=== PATIENT | female | born 1970 | race Two or more races ===

== ENCOUNTER 2018-11-09 10:46 | Inpatient (IN) | payer OTHER ==
[~2018-11-09] VITALS: Ht 149.9 cm; Wt 113.4 kg
[2018-11-26] MEDS ORDERED: SINGULAIR10 MG PO (10:50)
[2018-11-26] MEDS ORDERED: LEVO-T50 MCG PO (10:50)
[2018-11-26] MEDS ORDERED: ZANTAC300 MG PO (10:51)
[2018-11-26] MEDS ORDERED: FLECAINIDE ACET50 MG PO (10:51)
[2018-11-26] MEDS ORDERED: [UNRECOGNIZED DRUG - OTHER] (10:51)
[2018-11-26] MEDS ORDERED: ALBUTEROL IN (10:52)
[2018-11-26] MEDS ORDERED: ALBUTEROL1.25 MG/3 IH (10:53)
[2018-11-26] MEDS ORDERED: XOP IN (10:54)
[2018-12-01] MEDS ORDERED: CLARITIN10 MG PO (07:59)
[2018-12-01] MEDS ORDERED: ALBUTEROL0.63 MG/3 (08:00)
[2018-12-01] MEDS ORDERED: XOPENEX0.63 MG/3 (08:03)
== END 2018-12-04 17:38 | disposition home or self-care (01) | DRG 330 ==
LOC: SURG 11-26 10:15 → O/R 12-01 05:24 → SURG 12-01 05:24
PROVIDERS: ADMIT Colon & Rectal Surgery
PROC: 0DJD8ZZ Inspection of Lower Intestinal Tract, Via Natural or Artificial Opening Endoscopic (ICD-10-PCS; 2018-12-01)
PROC: 3E0F7GC Introduction of Other Therapeutic Substance into Respiratory Tract, Via Natural or Artificial Opening (ICD-10-PCS; 2018-12-01)
PROC: 4A12X4Z Monitoring of Cardiac Electrical Activity, External Approach (ICD-10-PCS; 2018-12-01)
PROC: 0DTN4ZZ Resection of Sigmoid Colon, Percutaneous Endoscopic Approach (ICD-10-PCS; principal; 2018-12-01 18:30)
DX: K57.20 Diverticulitis of large intestine with perforation and abscess without bleeding (principal); K92.1 Melena; J45.22 Mild intermittent asthma with status asthmaticus; I47.1 Supraventricular tachycardia; E03.8 Other specified hypothyroidism; G47.33 Obstructive sleep apnea (adult) (pediatric); E66.01 Morbid (severe) obesity due to excess calories; K29.70 Gastritis, unspecified, without bleeding

== ENCOUNTER 2018-12-20 22:57 | Emergency (ER) | payer OTHER ==
[~2018-12-20] VITALS: Ht 149.9 cm; Wt 108.9 kg
[~2018-12-20 22:57] MED LIST: ALBUTEROL IN; ALBUTEROL0.63 MG/3; ALBUTEROL1.25 MG/3 IH; CLARITIN10 MG PO; FLECAINIDE ACET50 MG PO; LEVO-T50 MCG PO; SINGULAIR10 MG PO; XOP IN; XOPENEX0.63 MG/3; ZANTAC300 MG PO; [UNRECOGNIZED DRUG - OTHER]
== END 2018-12-21 16:04 | disposition home or self-care (01) ==
LOC: ER 22:57
DX: T81.31XA Disruption of external operation (surgical) wound, not elsewhere classified, initial encounter (principal)

== ENCOUNTER 2019-12-24 10:44 | Day surgery (SDC) | payer OTHER | END 2019-12-24 17:15 | disposition home or self-care (01) | LOC: AMB-ENDOS 10:44 | PROVIDERS: ATTEND Colon & Rectal Surgery | DX: K57.32 Diverticulitis of large intestine without perforation or abscess without bleeding (principal); K64.0 First degree hemorrhoids; Z20.828 Contact with and (suspected) exposure to other viral communicable diseases ==